=== PATIENT | female | born 1950 | race Caucasian/White ===

== ENCOUNTER 2020-04-10 05:42 | Inpatient (IN) | payer MEDICARE, MEDICAID ==
[~2020-04-10] VITALS: Ht 154.9 cm; Wt 70.8 kg
[2020-04-10 06:12] LABS: BASOPHILS % 0.6 % (0.0-2.0); EOSINOPHILS % 1.7 % (0.0-5.0); HEMATOCRIT. 37.2 % (36.0-48.0); HEMOGLOBIN. 12.4 g/dL (12.0-16.0); LYMPHOCYTES % 25.7 % (20.0-50.0); MEAN CORPUSCULAR HEMOGLOBIN 31.2 pg (28.0-32.0); MEAN CORPUSCULAR VOLUME 93.3 fL (81.0-99.0); MEAN PLATELET VOLUME 8.1 fl (7.4-10.4); MONOCYTES % 4.2 % (2.0-8.0); NEUTROPHILS % 67.8 % (40.0-76.0); PLATELET 345 x1000/uL (130-400); RED BLOOD CELL COUNT 3.99 mill/uL (4.2-5.4); RED CELL DISTRIBUTION WIDTH 13.9 % (11.6-14.6)
[2020-04-10 06:19] LABS: CHLORIDE 108 mEq/L (98-107)
[2020-04-10] MEDS ORDERED: IPRATROPIUM/ALBUTEROL 0.5-3(2.5)MG/3ML NEB HHN PRN (15:45)
[2020-04-10] MEDS ORDERED: MORPHINE SULFATE 2 MG/ML CPJ (NOT FOR IM USE) IV PRN (15:45)
[2020-04-10] MEDS ORDERED: LEVOFLOXACIN 500MG PREMIX 100 ML IV SCH (16:00)
[2020-04-10] MEDS: DEXT 5%/0.45% NACL 1000ML 1,000 ML IV SCH ×2 (16:06→23:12)
[2020-04-10] MEDS: ENOXAPARIN 40MG/0.4ML SYR SUBCUT SCH (16:13)
[2020-04-10] MEDS ORDERED: IOHEXOL-300 100 ML BOTTLE ONE (21:07)
[2020-04-10] MEDS ORDERED: METRONIDAZOLE 500 MG PREMIX 100 ML IV ONE (22:30)
[2020-04-10] MEDS ORDERED: LISI10TA5 PO (22:47)
[2020-04-10] MEDS ORDERED: MONT5TAB13 PO (22:47)
[2020-04-10 22:48] VITALS: BP 172/88
[2020-04-10 23:46] VITALS: BP 110/80
[2020-04-10] MEDS: HYDROCODONE/ACETAMINOPHEN 5/325MG TABLET PO PRN (23:49)
[2020-04-11 00:16] LABS: CREATINE KINASE 58 IU/L (26-192)
[2020-04-11 04:00] VITALS: BP 143/78
[2020-04-11] MEDS: ACETAMINOPHEN 325MG TABLET PO PRN ×2 (06:44→20:34)
[2020-04-11 07:06] LABS: BASOPHILS % 1.1 % (0.0-2.0); EOSINOPHILS % 0.9 % (0.0-5.0); HEMOGLOBIN. 12.3 g/dL (12.0-16.0); LYMPHOCYTES % 18.3 % (20.0-50.0); MEAN CORPUSCULAR HEMOGLOBIN 30.8 pg (28.0-32.0); MEAN CORPUSCULAR VOLUME 92.6 fL (81.0-99.0); MEAN PLATELET VOLUME 8.4 fl (7.4-10.4); MONOCYTES % 6.8 % (2.0-8.0); NEUTROPHILS % 72.9 % (40.0-76.0); PLATELET 323 x1000/uL (130-400); RED BLOOD CELL COUNT 3.99 mill/uL (4.2-5.4); RED CELL DISTRIBUTION WIDTH 14.3 % (11.6-14.6)
[2020-04-11 08:00] VITALS: BP 173/71
[2020-04-11 08:30] VITALS: BP 156/68
[2020-04-11 09:32] LABS: CHLORIDE 105 mEq/L (98-107)
[2020-04-11 09:49] LABS: CREATINE KINASE 42 IU/L (26-192); T4 FREE 1.18 ng/dL (0.76-1.46)
[2020-04-11 09:50] LABS: HDL CHOLESTEROL 91 mg/dL (40-59); LDL CHOLESTEROL 126 mg/dL (5-100)
[2020-04-11] MEDS: CLONIDINE 0.1MG TABLET PO PRN (11:41)
[2020-04-11 12:00] VITALS: BP 130/61
[2020-04-11] MEDS ORDERED: POTASSIUM CHLORIDE INJ 40 MEQ in DEXT 5% WATER 250 ML IV SCH (13:00)
[2020-04-11] MEDS ORDERED: LORAZEPAM 2MG/ML CPJ IV PRN (15:30)
[2020-04-11] MEDS ORDERED: LACTULOSE 20G/30ML UDC PO PRN (15:30)
[2020-04-11] MEDS ORDERED: BISACODYL 10MG SUPP PR PRN (15:30)
[2020-04-11] MEDS ORDERED: ACETAMINOPHEN 650MG SUPP PR PRN (15:30)
[2020-04-11 15:59] VITALS: BP_SYST 114; BP_SYST 135; BP_SYST 144; BP_DIAS 65; BP_DIAS 67; BP_DIAS 77
[2020-04-11] MEDS: ENOXAPARIN 40MG/0.4ML SYR SUBCUT SCH (16:07)
[2020-04-11] MEDS: AMLODIPINE 5MG TABLET PO SCH (16:08)
[2020-04-11] MEDS: FAMOTIDINE 20MG/2ML VIAL IV SCH (16:08)
[2020-04-11 17:20] LABS: CLARITY URINE CLEAR (CLEAR); COLOR URINE YELLOW (YELLOW); KETONES URINE NEGATIVE (NEGATIVE); LEUKOCYTE ESTERASE URINE NEGATIVE (NEGATIVE); NITRITE URINE NEGATIVE (NEGATIVE); OCCULT BLOOD URINE NEGATIVE (NEGATIVE); PH URINE 6.5 (4.5-8.0); PROTEIN URINE NEGATIVE (NEGATIVE); SPECIFIC GRAVITY URINE 1.008 (1.005-1.030); UROBILINOGEN URINE 0.2 E.U./dL (0.2-1.0)
[2020-04-11] MEDS: LEVOFLOXACIN 500MG PREMIX 100 ML IV SCH (17:27)
[2020-04-11] MEDS: DEXT 5%/0.45% NACL 1000ML 1,000 ML IV SCH (17:28)
[2020-04-11] MEDS: METRONIDAZOLE 500 MG PREMIX 100 ML IV SCH (18:32)
[2020-04-11 20:00] VITALS: BP_SYST 125; BP_SYST 138; BP_SYST 141; BP_DIAS 68; BP_DIAS 70; BP_DIAS 75
[2020-04-11] MEDS: ATORVASTATIN CALCIUM 10MG TABLET PO SCH (20:18)
[2020-04-12] VITALS (7 sets, daily range): BP systolic 115–172; BP diastolic 64–92
[2020-04-12] MEDS: HYDROCODONE/ACETAMINOPHEN 5/325MG TABLET PO PRN (02:09)
[2020-04-12] MEDS: ONDANSETRON HCL 4MG/2ML INJ IV PRN ×3 (02:09→21:40)
[2020-04-12] MEDS: METRONIDAZOLE 500 MG PREMIX 100 ML IV SCH ×3 (03:46→18:52)
[2020-04-12 07:47] LABS: BASOPHILS % 0.7 % (0.0-2.0); EOSINOPHILS % 0.6 % (0.0-5.0); HEMATOCRIT. 36.1 % (36.0-48.0); HEMOGLOBIN. 12.2 g/dL (12.0-16.0); LYMPHOCYTES % 15.9 % (20.0-50.0); MEAN CORPUSCULAR VOLUME 91.7 fL (81.0-99.0); MEAN PLATELET VOLUME 8.2 fl (7.4-10.4); MONOCYTES % 5.4 % (2.0-8.0); NEUTROPHILS % 77.4 % (40.0-76.0); PLATELET 339 x1000/uL (130-400); RED BLOOD CELL COUNT 3.94 mill/uL (4.2-5.4); RED CELL DISTRIBUTION WIDTH 13.9 % (11.6-14.6)
[2020-04-12 08:04] LABS: CHLORIDE 103 mEq/L (98-107)
[2020-04-12] MEDS: DEXT 5%/0.45% NACL 1000ML 1,000 ML IV SCH ×2 (09:03→21:31)
[2020-04-12] MEDS: FAMOTIDINE 20MG/2ML VIAL IV SCH (09:03)
[2020-04-12] MEDS: AMLODIPINE 5MG TABLET PO SCH (09:03)
[2020-04-12] MEDS: CLONIDINE 0.1MG TABLET PO PRN (10:39)
[2020-04-12] MEDS ORDERED: POTASSIUM CHLORIDE 20MEQ TABLET SR PO NR (11:15)
[2020-04-12] MEDS ORDERED: BUTALBITAL/ACETAMINOPHEN/CAFFEINE 50/325/40MG TABLET PO PRN (17:00)
[2020-04-12] MEDS: ENOXAPARIN 40MG/0.4ML SYR SUBCUT SCH (17:20)
[2020-04-12] MEDS: LEVOFLOXACIN 500MG PREMIX 100 ML IV SCH (17:20)
[2020-04-12] MEDS: ACETAMINOPHEN 325MG TABLET PO PRN (20:07)
[2020-04-12] MEDS: ATORVASTATIN CALCIUM 10MG TABLET PO SCH (20:07)
[2020-04-13 00:09] VITALS: BP 125/70
[2020-04-13] MEDS: METRONIDAZOLE 500 MG PREMIX 100 ML IV SCH ×3 (01:37→17:09)
[2020-04-13 04:00] VITALS: BP 132/84
[2020-04-13 07:06] LABS: BASOPHILS % 0.5 % (0.0-2.0); EOSINOPHILS % 0.9 % (0.0-5.0); HEMATOCRIT. 34.7 % (36.0-48.0); LYMPHOCYTES % 22.7 % (20.0-50.0); MEAN CORPUSCULAR HEMOGLOBIN 31.2 pg (28.0-32.0); MEAN CORPUSCULAR VOLUME 90.6 fL (81.0-99.0); MEAN PLATELET VOLUME 8.4 fl (7.4-10.4); MONOCYTES % 6.6 % (2.0-8.0); NEUTROPHILS % 69.3 % (40.0-76.0); PLATELET 337 x1000/uL (130-400); RED BLOOD CELL COUNT 3.83 mill/uL (4.2-5.4); RED CELL DISTRIBUTION WIDTH 13.7 % (11.6-14.6)
[2020-04-13 07:11] LABS: CHLORIDE 100 mEq/L (98-107)
[2020-04-13 08:00] VITALS: BP 164/91
[2020-04-13] MEDS: FAMOTIDINE 20MG/2ML VIAL IV SCH (09:23)
[2020-04-13] MEDS: AMLODIPINE 5MG TABLET PO SCH (09:24)
[2020-04-13] MEDS ORDERED: AMLO10TA80 PO (09:47)
[2020-04-13] MEDS: DEXT 5%/0.45% NACL 1000ML 1,000 ML IV SCH (10:08)
[2020-04-13] MEDS ORDERED: POTASSIUM CHLORIDE 20MEQ TABLET SR PO NR ×2 (10:45→16:00)
[2020-04-13 12:00] VITALS: BP 142/80
[2020-04-13] MEDS ORDERED: FAMO-135 PO (14:09)
[2020-04-13] MEDS ORDERED: CIPR-263 MT (14:09)
[2020-04-13] MEDS ORDERED: AMLO10TA4 MT (14:09)
[2020-04-13] MEDS ORDERED: ATOR10TA MT (14:09)
[2020-04-13] MEDS ORDERED: METR500T MT (14:09)
[2020-04-13] MEDS ORDERED: POTA-79 MT (14:10)
[2020-04-13 14:33] VITALS: BP 142/80
[2020-04-13] MEDS: LEVOFLOXACIN 500MG PREMIX 100 ML IV SCH (15:47)
[2020-04-13] MEDS: ENOXAPARIN 40MG/0.4ML SYR SUBCUT SCH (15:58)
== END 2020-04-13 18:50 | disposition home or self-care (01) | DRG 74 ==
LOC: ER 05:42 → 8WST 10:40 → EDBEDREQ 10:43 → ENRESERV 20:04
PROVIDERS: ADMIT Internal Medicine; ATTEND Internal Medicine
DX: G90.8 Other disorders of autonomic nervous system (principal); K57.32 Diverticulitis of large intestine without perforation or abscess without bleeding; I10 Essential (primary) hypertension; E78.5 Hyperlipidemia, unspecified; R73.9 Hyperglycemia, unspecified; K76.0 Fatty (change of) liver, not elsewhere classified; E87.6 Hypokalemia; E78.00 Pure hypercholesterolemia, unspecified; R73.03 Prediabetes; K57.30 Diverticulosis of large intestine without perforation or abscess without bleeding; Z88.0 Allergy status to penicillin; Z79.899 Other long term (current) drug therapy; Z90.710 Acquired absence of both cervix and uterus; M47.9 Spondylosis, unspecified; D72.829 Elevated white blood cell count, unspecified; R55 Syncope and collapse
CPT/HCPCS: 36415; 70551; 71045; 74177; 80048; 80053; 80061; 81003; 82550; 82962; 83036; 83880; 84132; 84439; 84443; 84484; 85025; 93005; 93306; 93880; 93970; 96374; 97162; 99285; J1650; J1956; J2405; J3480; J3490; J7060; Q9967

== ENCOUNTER 2022-07-08 12:14 | Inpatient (IN) | payer MEDICARE, MEDICAID ==
[~2022-07-08] VITALS: Ht 157.5 cm; Wt 63.5 kg
[~2022-07-08 12:14] MED LIST: AMLO10TA4 MT; AMLO10TA80 PO; ATOR10TA MT; CIPR-263 MT; FAMO-135 PO; METR500T MT; POTA-79 MT
[2022-07-08] MEDS ORDERED: losartan (12:16)
[2022-07-08] MEDS ORDERED: potassium (12:17)
[2022-07-08] MEDS ORDERED: carvedilol (12:17)
[2022-07-08 14:25] LABS: EOSINOPHILS % 3.8 % (0.0-5.0); HEMATOCRIT. 34.2 % (36.0-48.0); HEMOGLOBIN. 11.1 g/dL (12.0-16.0); LYMPHOCYTES % 27.8 % (20.0-50.0); MEAN CORPUSCULAR HEMOGLOBIN 29.8 pg (28.0-32.0); MEAN CORPUSCULAR VOLUME 91.5 fL (81.0-99.0); MEAN PLATELET VOLUME 9.7 fl (7.4-10.4); MONOCYTES % 6.9 % (2.0-8.0); NEUTROPHILS % 60.5 % (40.0-76.0); PLATELET 319 x1000/uL (130-400); RED BLOOD CELL COUNT 3.74 mill/uL (4.2-5.4)
[2022-07-08 14:28] LABS: CHLORIDE 109 mEq/L (98-107)
[2022-07-08 14:30] LABS: D-DIMER 0.74 mg/L FEU (<0.50); INR 0.9; PARTIAL THROMBOPLASTIN TIME 26.8 sec (23.4-31.0); PROTHROMBIN TIME 10.2 sec (9.6-11.0)
[2022-07-08] MEDS ORDERED: ENOXAPARIN 80MG/0.8ML SYR SUBCUT ONE (15:15)
[2022-07-08] MEDS ORDERED: IOHEXOL-350 100 ML BOTTLE ONE (17:24)
[2022-07-08] MEDS: ACETAMINOPHEN 325MG TABLET PO PRN (23:40)
[2022-07-09] MEDS ORDERED: IODIXANOL 320MG/ML 100 ML BOTTLE IV ONE (08:03)
[2022-07-09] MEDS ORDERED: DIPHENHYDRAMINE 50MG/ML VIAL ONE (08:03)
[2022-07-09] MEDS ORDERED: LIDOCAINE HCL/PF 1% 10 MG/ML 5ML VIAL ONE (08:03)
[2022-07-09] MEDS ORDERED: VERAPAMIL HCL 2.5 MG/1 ML 2ML VIAL IV ONE (08:03)
[2022-07-09] MEDS ORDERED: HEPARIN 1000 UNITS/ML 10ML ONE (08:04)
[2022-07-09] MEDS ORDERED: FENTANYL CITRATE/PF 50MCG/ML 2ML VIAL ONE (08:20)
[2022-07-09] MEDS ORDERED: MIDAZOLAM HCL 2 MG/2 ML VIAL ONE (08:20)
[2022-07-09] MEDS: ASPIRIN 81MG TABLET PO SCH (09:00)
[2022-07-09] MEDS ORDERED: CLOPIDOGREL 75MG TABLET ONE (09:58)
[2022-07-09] MEDS ORDERED: ASPIRIN 325MG TABLET ONE (10:00)
[2022-07-09] MEDS ORDERED: ATROPINE SULFATE 1MG/10ML SYR IV PRN (10:15)
[2022-07-09] MEDS ORDERED: SODIUM CHLORIDE 0.45% 500 ML IV ONE (10:30)
[2022-07-09 11:00] VITALS: BP 115/73
[2022-07-09 12:00] VITALS: BP 126/74
[2022-07-09 16:00] VITALS: BP 121/71
[2022-07-09] MEDS: ACETAMINOPHEN 325MG TABLET PO PRN (16:12)
[2022-07-09 20:00] VITALS: BP 137/76
[2022-07-09] MEDS ORDERED: ATORVASTATIN CALCIUM 40MG TABLET PO SCH (21:00)
[2022-07-10] VITALS: BP 126/64
[2022-07-10 04:00] VITALS: BP 109/67
[2022-07-10 07:54] LABS: BASOPHILS % 0.8 % (0.0-2.0); EOSINOPHILS % 2.9 % (0.0-5.0); HEMATOCRIT. 35.9 % (36.0-48.0); HEMOGLOBIN. 12.1 g/dL (12.0-16.0); MEAN CORPUSCULAR HEMOGLOBIN 30.4 pg (28.0-32.0); MEAN CORPUSCULAR VOLUME 90.1 fL (81.0-99.0); MEAN PLATELET VOLUME 9.1 fl (7.4-10.4); MONOCYTES % 9.8 % (2.0-8.0); NEUTROPHILS % 55.5 % (40.0-76.0); PLATELET 314 x1000/uL (130-400); RED BLOOD CELL COUNT 3.98 mill/uL (4.2-5.4); RED CELL DISTRIBUTION WIDTH 14.4 % (11.6-14.6)
[2022-07-10 08:00] VITALS: BP_SYST 105; BP_SYST 115; BP_DIAS 65; BP_DIAS 78
[2022-07-10 08:56] LABS: CHLORIDE 108 mEq/L (98-107)
[2022-07-10] MEDS ORDERED: CLOPIDOGREL 75MG TABLET PO SCH (09:00)
[2022-07-10] MEDS: ACETAMINOPHEN 325MG TABLET PO PRN (09:06)
[2022-07-10] MEDS: ASPIRIN 81MG TABLET PO SCH (09:06)
[2022-07-10 12:00] VITALS: BP_SYST 131; BP_SYST 94; BP_DIAS 67; BP_DIAS 75
[2022-07-10 16:00] VITALS: BP 130/72
[2022-07-10 17:31] VITALS: BP 122/67
== END 2022-07-10 18:40 | disposition home or self-care (01) | DRG 247 ==
LOC: ER 12:14 → EDBEDREQ 15:14 → 5EST 17:07 → EDBEDREQTM 17:08 → EDBEDREQ 17:08 → ENRESERV 07-09 07:18 → 3WST 07-09 08:46
PROVIDERS: ADMIT Internal Medicine; ATTEND Internal Medicine
PROC: 027034Z Dilation of Coronary Artery, One Artery with Drug-eluting Intraluminal Device, Percutaneous Approach (ICD-10-PCS; principal; 2022-07-09)
PROC: 4A023N7 Measurement of Cardiac Sampling and Pressure, Left Heart, Percutaneous Approach (ICD-10-PCS; 2022-07-09)
PROC: B211YZZ Fluoroscopy of Multiple Coronary Arteries using Other Contrast (ICD-10-PCS; 2022-07-09)
DX: I21.4 Non-ST elevation (NSTEMI) myocardial infarction (principal); I50.22 Chronic systolic (congestive) heart failure; I25.10 Atherosclerotic heart disease of native coronary artery without angina pectoris; I11.0 Hypertensive heart disease with heart failure; Z20.822 Contact with and (suspected) exposure to COVID-19; E78.00 Pure hypercholesterolemia, unspecified; K21.9 Gastro-esophageal reflux disease without esophagitis; Z88.0 Allergy status to penicillin
CPT/HCPCS: 36415; 71045; 71275; 80048; 80053; 80061; 83036; 83880; 84484; 85025; 85347; 85379; 87426; 92928; 93005; 93306; 93458; 99291; C1725; C1769; C1874; C1887; C1893; J1200; J1644; J1650; J2250; J3010; J3490; Q9967